=== PATIENT | female | born 1960 | race Caucasian/White ===

== ENCOUNTER 2025-03-31 10:16 | Outpatient (CLI) | payer MEDICARE, MEDICAID ==
[~2025-03-31 10:16] MED LIST: ALPR-624; IBUP-1984 PO; NEBI5TAB9 PO; ZOLP6.2523 PO
[2025-03-31 11:19] LABS: MEAN PLATELET VOLUME 7.4 FL (7.4-10.4); RED CELL DISTRIBUTION WIDTH 22.9 % (11.5-14.5)
--- NOTE | 2025-03-31 11:35 | RADIOLOGY REPORT ---
DI SHOULDER, COMPLETE (MIN 2 VWS) INDICATION: LEFT UPPER ARM PAIN TECHNICAL DATA: 3 views were obtained of the left shoulder. COMPARISON: None FINDINGS: There is no fracture or focal bone abnormality. The glenohumeral joint is normally maintained. The ac romioclavicular joint appears degenerative. The humeral head is not high riding. Adjacent soft tissue s are within normal limits. Degenerative changes are noted involving the visualized spine. There is a cardiac pacer. IMPRESSION: No acute fracture or dislocation of the left shoulder.
[2025-03-31 11:36] LABS: % IRON SATURATION 5 % (11-46)
[2025-03-31 11:39] LABS: CHOL/HDL RATIO 3.0 (0.00-4.99); CREATININE 1.15 MG/DL (0.40-0.90); LDL CHOLESTEROL 110 MG/DL (50-100); TOTAL CARBON DIOXIDE 23.0 MMOL/L (24-32); eGFR 47 ML/MIN
[2025-03-31 12:02] LABS: PLATELET ESTIMATE NORMAL
== END 2025-03-31 23:59 | disposition home or self-care (01) ==
LOC: RAD 10:16
PROVIDERS: ATTEND Nurse Practitioner Family
DX: M25.512 Pain in left shoulder (principal); M79.662 Pain in left lower leg; R63.4 Abnormal weight loss; M47.816 Spondylosis without myelopathy or radiculopathy, lumbar region
CPT/HCPCS: 36415; 73030; 80053; 80061; 82607; 82746; 83036; 83540; 83550; 84439; 84443; 85008; 85025

== ENCOUNTER 2025-04-04 12:10 | Outpatient (CLI) | payer MEDICARE, MEDICAID ==
[2025-04-04] MEDS ORDERED: iohexol 300mg/ml 100ml inj. ONE ×2 (12:56→14:08)
--- NOTE | 2025-04-04 14:01 | RADIOLOGY REPORT ---
Exam: US US NON VASCULAR Date: 04/04/2025 12:35 PM Clinical History: PAIN IN LEFT UPPER ARM Comparison: None Findings: Targeted sonographic evaluation of the soft tissues of the left biceps was obtained utilizing graysca le and color Doppler imaging. There is no evidence for drainable collection. There is no evidence for solid or cystic mass in the site. No vascular abnormalities identified at this site. IMPRESSION: No definite sonographic abnormality is identified in the soft tissues of the left biceps. MRI recomme nded END IMPRESSION:
--- NOTE | 2025-04-04 14:28 | RADIOLOGY REPORT ---
COMPUTERIZED TOMOGRAPHY CHEST/ABDOMEN/PELVIS WITH INTRAVENOUS CONTRAST CLINICAL HISTORY: UNEXPLAINED WEIGHT LOSS COMPARISON: None TECHNIQUE: After the administration of intravenous contrast, axial CT images of the chest, abdomen an d pelvis were obtained. 2-D coronal and sagittal reformatted images were provided. Radiation optimiza tion: All CT scans at this facility use at least one of these dose optimization techniques: Automated exposure control mA and/or kV adjustment per patient size (includes targeted exams where dose is mat ched to clinical indication) or iterative reconstruction. CONTRAST ADMINISTERED: 100 mL omnipaque 300, intravenously. RADIATION DOSE: CTDI: 9 mGy DLP: 619 mGy-cm FINDINGS: CHEST: No pulmonary nodule or mass is identified. There is no bronchiectasis or honeycombing. There is no pl eural effusion. There is no pneumothorax. The visualized thyroid gland is grossly unremarkable. The h eart is not enlarged. There is an AICD. There is no pericardial effusion. There is no thoracic aorti c aneurysm or dissection. There is no large central pulmonary embolism. No pathologic lymphadenopath y is identified in the chest. ABDOMEN/PELVIS: There are surgical changes associated with partial gastrectomy. No calcified gallstone is identified. There is mild intrahepatic biliary dilation. No liver mass is identified. The common bile duct is di lated at 12 mm. The pancreatic duct is mildly dilated at 4 mm. No pancreatic mass is identified. The portal vein is patent. There is no abdominal aortic aneurysm. There is extensive atherosclerosis. The adrenal glands are normal. The kidneys enhance symmetrically. No solid renal mass is identified. Th ere is no hydronephrosis of either kidney. The urinary bladder is unremarkable. The uterus is grossly unremarkable. The ovaries are within normal limits. No free fluid is identified in the abdomen or pe lvis. The colonic stool burden is moderate. The appendix is normal. There is no pathologic distention of the small bowel to suggest obstruction. No pathologic lymphadenopathy is identified in the abdome n or pelvis. No mass or abscess is identified in the abdomen or pelvis. No acute osseous abnormality is identified. There are degenerative changes in the lower lumbar spine. IMPRESSION: No mass or abscess is identified in the chest, abdomen, or pelvis. Nonspecific, mild intrahepatic and extrahepatic biliary dilation. The common bile duct is dilated at 12 mm. There is also mild dilation of the pancreatic duct at 4 mm. Further evaluation with MRCP is r ecommended.
== END 2025-04-04 23:59 | disposition home or self-care (01) ==
LOC: RAD 12:10
PROVIDERS: ATTEND Nurse Practitioner Family
DX: K86.89 Other specified diseases of pancreas (principal); M79.622 Pain in left upper arm; R63.4 Abnormal weight loss
CPT/HCPCS: 76882; Q9967

== ENCOUNTER 2025-06-01 08:18 | Outpatient (CLI) | payer MEDICARE, MEDICAID ==
--- NOTE | 2025-06-01 20:17 | RADIOLOGY REPORT ---
EXAM: MR MRI ABDOMEN HISTORY: ABNORMAL WEIGHT LOSS COMPARISON: None TECHNIQUE: Multiplanar, multisequence imaging of the abdomen was performed with and without contrast. FINDINGS: [LOWER CHEST]: No pleural effusion. [LIVER]: Incompletely characterized benign T2 hyperintense presumed cysts of the right posterior kidney measuring 0.9 cm. [SPLEEN]: Unremarkable. [PANCREAS]: The pancreas is normal in appearance without focal lesions. Normal pancreatic duct size. [GALLBLADDER AND DUCTS]: Gallbladder is normal in appearance. Gallbladder is elongated. No cholelithiasis or choledocholithiasis slight distal tortuous course of the common bile duct with distal dilation up to 1.1 cm. No pancreatic ductal dilation. No abnormal beaded morphology [ADRENAL GLANDS]: Unremarkable. [KIDNEYS]: Normal enhancement without suspicious lesions or hydronephrosis. [VISUALIZED BOWEL]: Grossly unremarkable. [VASCULATURE]: Unremarkable. [LYMPHADENOPATHY]: No evidence for lymphadenopathy. [ASCITES]: Absent. [MUSCULOSKELETAL]: Bone marrow signal is normal. [OTHER]: None IMPRESSION: 1. Gallbladder is elongation without significant enlargement in width. No choledocholithiasis or cholelithiasis. 2. Indeterminate prominence of the distal common bile duct with slight medialization of the distal common bile duct which may be related to prior abdominal surgery. 3. Consider correlation with clinical exam for biliary colic.
--- NOTE | 2025-06-01 20:31 | RADIOLOGY REPORT ---
EXAM: MR MRI UPPER EXTREMITY LEFT INDICATION: PAIN IN LEFT UPPER ARM TECHNIQUE: Multiplanar, multisequence imaging of the left upper extremity without contrast COMPARISON: None FINDINGS: BONES: No MR evidence of an acute fracture, osseous contusion, or aggressive focal osseous lesion. MUSCLES: On the provided images, overall incomplete characterization however trace muscle edema of the distal myotendinous junction of the biceps correlate for muscle strain /partial tear. TENDONS: Intact. LIGAMENTS: Intact. JOINT SPACES: No joint effusion. NEUROVASCULAR: Normal. OTHER: None. IMPRESSION: 1. On the provided images, overall incomplete characterization however trace muscle edema of the distal myotendinous junction of the biceps and correlate for muscle strain /partial tear.
== END 2025-06-01 23:59 | disposition home or self-care (01) ==
LOC: MRI 08:18
PROVIDERS: ATTEND Nurse Practitioner Family
DX: K80.50 Calculus of bile duct without cholangitis or cholecystitis without obstruction (principal); R63.4 Abnormal weight loss; K86.89 Other specified diseases of pancreas; M79.622 Pain in left upper arm
CPT/HCPCS: 73218; 74181

== ENCOUNTER 2025-07-27 08:47 | Day surgery (SDC) | payer MEDICARE, MEDICAID ==
[2025-07-27] VITALS (8 sets, daily range): BP systolic 108–128; BP diastolic 58–72; PULSE 60–72; RESP 11–16; TEMP 97.6; O2SAT 93–100
[~2025-07-27] VITALS: Ht 172.7 cm; Wt 58.5 kg
[2025-07-27] MEDS: DOCUMENT DATE & TIME OF BETA-BLOCKER PO ONE (05:30)
[~2025-07-27 08:47] MED LIST changes: -ALPR-624; +ASPI-529 PO; +CLON1TAB13 PO; +CYCL-1 PO; +EMPA10TA PO; +EZET10TA80 PO; +FMLOS EACHEYE; +FURO20TA4 PO; -IBUP-1984 PO; +LIDOcaine 2% Viscous 15ml cup MM ONE; +LISI2.5T14 PO; +METO-395 PO; -NEBI5TAB9 PO; +NITR0.4T48 SL; +ONDA-104 PO; +PANT40TA54 PO; +PRE5T PO; +ROSU5TAB51 PO; -ZOLP6.2523 PO; +simethicone 40mg/0.6ml oral drops 15ml PO ONE
[2025-07-27] MEDS: hydrocortisone sod succ/PF 100mg/2ml inj. IV STA (10:45)
[2025-07-27] MEDS: ringers solution, lacted 1,000 ML IV SCH (10:45)
[2025-07-27 11:04] LABS: ISTAT ANION GAP 7.0 (8-12); ISTAT BUN 35.0 mg/dL (7-18); ISTAT CL 107.0 mmol/L (99-107); ISTAT CREATININE 1.1 mg/dL (0.6-1.1); ISTAT GLUCOSE 92.0 mg/dL (70-104); ISTAT HGB 12.9 g/dl (12.0-16.0); ISTAT Hct 38.0 %PCV (35-45); ISTAT IONIZED CALCIUM 1.31 mmol/L (1.03-1.32); ISTAT K 4.2 mmol/L (3.5-5.1); ISTAT NA 138.0 mmol/L (135-145); ISTAT TOTAL CO2 24.0 mmol/L (24-32); ISTAT eGFR 50.0 ML/MIN; POC BUN/CREATININE RATIO 31.8 (6.6-38.0)
[2025-07-27] MEDS ORDERED: midazolam 1 mg/ML 2ml injection ONE (11:30)
[2025-07-27] MEDS ORDERED: fentaNYL/PF 50MCG/1 ML 2ML syringe ONE ×2 (11:30→11:45)
[2025-07-27] MEDS ORDERED: LIDOcaine 2% (20mg/ml) 5ml vial ONE (11:32)
[2025-07-27] MEDS ORDERED: propofol inj 20 ML IV ONE (11:51)
== END 2025-07-27 13:14 | disposition home or self-care (01) ==
LOC: PAS 08:47
PROVIDERS: ATTEND Internal Medicine Gastroenterology
DX: D50.9 Iron deficiency anemia, unspecified (principal); K57.30 Diverticulosis of large intestine without perforation or abscess without bleeding; I10 Essential (primary) hypertension; I25.10 Atherosclerotic heart disease of native coronary artery without angina pectoris; Z86.74 Personal history of sudden cardiac arrest; Z95.0 Presence of cardiac pacemaker; Z87.11 Personal history of peptic ulcer disease; Z98.890 Other specified postprocedural states; E78.5 Hyperlipidemia, unspecified; K21.9 Gastro-esophageal reflux disease without esophagitis; M06.9 Rheumatoid arthritis, unspecified; Z87.891 Personal history of nicotine dependence; Z95.5 Presence of coronary angioplasty implant and graft
CPT/HCPCS: 43239; 45378; 80047; 82948; 88305; 88342; A4615; J1720; J2003; J2250; J2704; J3010; J7120; Z7512; Z7610